=== PATIENT | female | born 1995 | race Caucasian/White ===

== ENCOUNTER 2019-01-30 19:01 | Emergency (ER) | payer BC, OTHER ==
[~2019-01-30] VITALS: Ht 170.2 cm; Wt 70.3 kg
--- OUTSIDE RECORDS SUMMARY | 2019-01-30 19:06 | XMS REPORT | Continuity of Care Document ---
Author Organization Unknown Address Unknown Allergies There is no data. Medications There is no data. Problems There is no data. Procedures There is no data. Results There is no data. Encounters ACCT No. Visit Date/Time Discharge Status Pt. Type Provider Facility Loc./Unit Complaint [id number] 01/27/2019 14:30:00 01/27/2019 23:59:59 [facility]
--- NOTE | 2019-01-30 19:19 | ED Lower Extremity ---
General Chief Complaint: Lower Extremity Stated Complaint: LT LEG INJ Source: patient History of Present Illness Date Seen by Provider: January 30, 2019 Time Seen by Provider: 19:10 Onset: just prior to arrival Severity: moderate Pain/Injury Location: left thigh (pain, swelling, contusion ) Method of Injury: other (pt was kicked by her horse ) pt able to ambulate but hurts. pain in left thigh Allergies and Home Medications Allergies Coded Allergies: amoxicillin (Verified Allergy, Unknown, 01/30/19) Uncoded Allergies: PENICILLIN (Allergy, Unknown, 01/30/19) Patient Home Medication List Home Medication List Reviewed: Yes Review of Systems Constitutional: see HPI EENTM: see HPI Respiratory: see HPI Cardiovascular: see HPI Gastrointestinal: no symptoms reported Genitourinary: see HPI : No Musculoskeletal: see HPI Skin: see HPI Psychiatric/Neurological: No Symptoms Reported Past Syrayhv-Xkvyvj-Dkndos Hx Past Med/Social Hx: Reviewed Nursing Past Med/Soc Hx Patient Social History Recent Foreign Travel: No Contact w/Someone Who Travel: No Physical Exam Vital Signs Vital Signs - First Documented 01/30/19 19:09 Temp 98.2 Pulse 77 Resp 18 B/P (MAP) 114/66 (82) Pulse Ox 100 O2 Delivery Room Air Capillary Refill : Height, Weight, BMI Height: '" Weight: lbs. oz. kg; BMI Method: General Appearance: WD/WN, no apparent distress HEENT: PERRL/EOMI Neck: non-tender, full range of motion Cardiovascular: normal peripheral pulses, regular rate, rhythm Respiratory: chest non-tender, lungs clear Gastrointestinal: non tender, soft Hips: bilateral hip non-tender, bilateral hip normal inspection Legs: left leg normal range of motion, left leg ecchymosis, left leg soft tissue tenderness (mid thigh ) Knees: bilateral knee non-tender, bilateral knee normal inspection Ankles: bilateral ankle non-tender, bilateral ankle normal inspection Neurologic/Tendon: normal sensation, normal motor functions Neurologic/Psychiatric: no motor/sensory deficits, oriented x 3 Skin: warm/dry Lymphatic: no adenopathy Progress/Results/Core Measures Results/Orders My Orders Orders - AHN,ADALGISA L DO Femur 2 View Left (01/30/19 19:14) Vital Signs/I&O 01/30/19 19:09 Temp 98.2 Pulse 77 Resp 18 B/P (MAP) 114/66 (82) Pulse Ox 100 O2 Delivery Room Air Diagnostic Imaging Diagonstic Imaging: Xray Plain Films/CT/US/NM/MRI: leg (no fracture ) Departure Impression Primary Impression: Contusion of left thigh, initial encounter Disposition: HOME, SELF-CARE Condition: Stable Departure-Patient Inst. Referrals: NO,LOCAL PHYSICIAN (PCP) Primary Care Physician Patient Instructions: Contusion (DC) Add. Discharge Instructions: 4% Lidocaine with menthol cream or gel to affected area as directed on package Tylenol or ibuprofen as needed for pain All discharge instructions reviewed with patient and/or family. Voiced understanding. ADALGISA AHN DO January 30, 2019 19:19
--- NOTE | 2019-01-30 19:39 | Diagnostic Imaging Report ---
EXAM: Femur 2 view, left. INDICATION: Kicked by horse. COMPARISON: None. FINDINGS: Radiopaque foreign body overlying the head of the femur is indeterminate and may be external to the patient. No left femur fracture. Normal alignment. Postoperative changes in the left knee. IMPRESSION: 1. Indeterminate radiopaque foreign body overlying the left femoral head measures up 1.4 cm and may be external to the patient. 2. No femur fracture. Dictated by: Dictated on workstation # [id number]
[2019-01-30 19:58] VITALS: BP 105/58
== END 2019-01-30 19:57 | disposition home or self-care (01) ==
LOC: ER FS 19:03
DX: S70.12XA Contusion of left thigh, initial encounter (principal); Z88.1 Allergy status to other antibiotic agents; Z88.0 Allergy status to penicillin; W55.12XA Struck by horse, initial encounter
CPT/HCPCS: 73552